=== PATIENT | female | born 2000 | race Two or more races ===

== ENCOUNTER → 2024-08-23 | Outpatient (CLI) | payer OTHER, SELFPAY ==
[2024-08-23 14:49] LABS: T4 (Thyroxine) 8.7 mcg/dL (4.5-10.9)
[2024-08-23 15:14] LABS: Free T4 (Free Thyroxine) 1.41 ng/dL (0.89-1.76); Thyroid Stimulating Hormone < 0.01 uIU/mL (0.55-4.78)
[2024-08-30 06:24] LABS: T3,Total* 179 ng/dL (76-181); TSI, Thyroid Stimulating Ig* 237 % baseline (<140); Thyroid Peroxidase Antibodies* >900 IU/mL (<9)
== END | disposition home or self-care (01) ==
PROVIDERS: PCP Family Medicine; Referring Provider Internal Medicine Endocrinology, Diabetes & Metabolism; Visit Provider Internal Medicine Endocrinology, Diabetes & Metabolism
DX: E05.00 Thyrotoxicosis with diffuse goiter without thyrotoxic crisis or storm (principal)
CPT/HCPCS: 36415; 84436; 84439; 84443; 84445; 84480; 86376